=== PATIENT | female | born 1995 | race Caucasian/White ===

== ENCOUNTER 2021-07-14 09:44 | Inpatient (IN) | payer OTHER ==
[2021-07-14 10:27] LABS: BASO % 0.5 % (0-2.0); EOS % 1.5 % (0-4.5); HEMATOCRIT 34.9 % (32.4-45.2); HEMOGLOBIN 11.9 GM/dL (10.7-15.3); LYMPH % 17.5 % (8-40); MCH 28.5 pg (25.7-33.7); MCHC 34.1 g/dl (32.0-36.0); MEAN CELL VOLUME 83.8 fl (80-96); MEAN PLT VOLUME 9.9 fl (7.5-11.1); MONO % 5.8 % (3.8-10.2); NEUT % 74.7 % (42.8-82.8); PLATELET COUNT 170 10^3/uL (134-434); RBC 4.16 M/mm3 (3.60-5.2); RDW 13.9 % (11.6-15.6); WHITE BLOOD COUNT 9.5 K/mm3 (4.0-10.0)
[2021-07-14 10:33] LABS: INR 0.91 (0.83-1.09); PROTHROMBIN TIME (PATIENT) 11.2 SEC (9.7-13.0)
[2021-07-14] MEDS ORDERED: PROMETHAZINE HCL 25 MG/1 ML VIAL IVPB ONE (10:34)
[2021-07-14] MEDS ORDERED: BUTORPHANOL TARTRATE 2 MG/ML VIAL IVPB ONE (10:34)
[2021-07-14 10:35] LABS: ACTIVATED PTT 26.3 SECONDS (25.2-36.5)
[2021-07-14] MEDS ORDERED: DINOPROSTONE 10 MG VAGINAL SUPPOSITORY VG ONE (10:38)
[2021-07-14] MEDS ORDERED: DEXTROSE 5%-LACTATED RINGERS 1,000 ML IV SCH (10:45)
[2021-07-14 10:48] LABS: CALCIUM 8.3 mg/dL (8.5-10.1)
[2021-07-14 10:49] LABS: BLOOD UREA NITROGEN 5.6 mg/dL (7-18)
[2021-07-14 10:52] VITALS: BMI 36.7
[2021-07-14 10:53] LABS: CREATININE 0.4 mg/dL (0.55-1.3)
[2021-07-14 12:33] LABS: METHADONE, UR NEGATIVE (NEGATIVE); OPIATES, URI NEGATIVE (NEGATIVE); PHENCYCLIDINE,URINE NEGATIVE (NEGATIVE); URINE BARBITURATES NEGATIVE (NEGATIVE)
[2021-07-14 12:34] LABS: COCAINE, UR NEGATIVE (NEGATIVE)
[2021-07-14 12:37] LABS: URINE AMPHETAMINES NEGATIVE (NEGATIVE); URINE BENZODIAZEPINES NEGATIVE (NEGATIVE)
[2021-07-14] MEDS ORDERED: AMPICILLIN SODIUM 2 GM VIAL ONE (14:14)
[2021-07-14] MEDS ORDERED: AMPICILLIN - 2 GM in SODIUM CHLORIDE 100 ML IVPB ONE ×2 (14:28→14:56)
[2021-07-14] MEDS ORDERED: AMPICILLIN SODIUM 1 GM VIAL ONE (17:53)
[2021-07-14] MEDS ORDERED: AMPICILLIN - 1 GM in SODIUM CHLORIDE 100 ML IVPB SCH (18:30)
[2021-07-14] MEDS ORDERED: BUTORPHANOL TARTRATE 2 MG/ML VIAL ONE (18:42)
[2021-07-14] MEDS ORDERED: PROMETHAZINE HCL 25 MG/1 ML VIAL ONE (18:42)
[2021-07-14] MEDS ORDERED: OXYTOCIN 30 UNITS in 0.9% NS 30 UNIT/500 ML INFUS.BAG IVPB SCH (19:30)
[2021-07-14] MEDS ORDERED: OXYTOCIN 30 UNITS in 0.9% NS 30 UNIT/500 ML INFUS.BAG IVPB ONE (19:32)
[2021-07-14] MEDS ORDERED: OXYTOCIN 20 UNITS in 0.9% NS 20 UNIT/1,000 ML INFUS.BAG IV ONE (20:44)
[2021-07-14] MEDS: OXYTOCIN 20 UNITS in 0.9% NS 20 UNIT/1,000 ML INFUS.BAG IV SCH (20:57)
[2021-07-14] MEDS ORDERED: WITCH HAZEL 50% (TUCKS) 40 PAD/JAR PAD TP PRN (21:24)
[2021-07-14] MEDS ORDERED: BENZOCAINE 20% 57 GM BOTTLE TP PRN (21:24)
[2021-07-14] MEDS ORDERED: METHYLERGONOVINE MALEATE 0.2 MG/1 ML AMP IM PRN (21:24)
[2021-07-14] MEDS ORDERED: BISACODYL 10 MG SUPP.RECT RC PRN (21:24)
[2021-07-14] MEDS ORDERED: BENZOCAINE 28 GM HEMORRHOIDAL OINTMENT TP PRN (21:24)
[2021-07-14] MEDS ORDERED: IBUPROFEN 600 MG TABLET (FP) PO PRN (21:24)
[2021-07-14] MEDS ORDERED: ACETAMINOPHEN 325 MG TABLET (FP) PO PRN (21:24)
[2021-07-14 22:14] LABS: CORD BASE EXCESS -2.3 mmol/L (0-2); CORD HCO3 22.7 mmHg (20-29); CORD PCO2 40.1 mmHg (30-78); CORD pH 7.371 (7.14-7.44)
[2021-07-14 22:17] LABS: CORD BASE EXCESS -3.1 mmol/L (0-2); CORD HCO3 21.5 mmHg (20-29); CORD PCO2 37.5 mmHg (30-78); CORD pH 7.377 (7.14-7.44)
[2021-07-14] MEDS ORDERED: SODIUM PHOSPHATE/NA BIPHOS 133 ML ENEMA RC ONE (22:30)
[2021-07-15] MEDS ORDERED: OXYTOCIN 20 UNITS in 0.9% NS 20 UNIT/1,000 ML INFUS.BAG IV ONE (04:20)
[2021-07-15] MEDS ORDERED: ACETAMINOPHEN 325 MG TABLET (FP) ONE (04:24)
[2021-07-15] MEDS ORDERED: IBUPROFEN 600 MG TABLET (FP) PO ONE (04:24)
[2021-07-15] MEDS: OXYTOCIN 20 UNITS in 0.9% NS 20 UNIT/1,000 ML INFUS.BAG IV SCH (04:30)
[2021-07-15] MEDS: FERROUS SO4 325 MG TABLET (FP) PO SCH ×2 (09:00→18:06)
[2021-07-15 10:12] LABS: BASO % 0.6 % (0-2.0); EOS % 0.4 % (0-4.5); HEMATOCRIT 34.7 % (32.4-45.2); HEMOGLOBIN 11.7 GM/dL (10.7-15.3); LYMPH % 14.1 % (8-40); MCH 28.9 pg (25.7-33.7); MCHC 33.8 g/dl (32.0-36.0); MEAN CELL VOLUME 85.6 fl (80-96); MEAN PLT VOLUME 10.7 fl (7.5-11.1); MONO % 4.4 % (3.8-10.2); NEUT % 80.5 % (42.8-82.8); PLATELET COUNT 180 10^3/uL (134-434); RBC 4.05 M/mm3 (3.60-5.2); WHITE BLOOD COUNT 12.8 K/mm3 (4.0-10.0)
[2021-07-15] MEDS ORDERED: FERROUS SO4 325 MG TABLET (FP) ONE (10:22)
[2021-07-15] MEDS ORDERED: PRENATAL VITAMINS W/ FOLIC ACID TABLET (FP) PO ONE (10:22)
[2021-07-15] MEDS: PRENATAL VITAMINS W/ FOLIC ACID TABLET (FP) PO SCH (10:25)
[2021-07-15] MEDS ORDERED: SENNOSIDES/DOCUSATE COMBO (SENNA PLUS) TABLET (UD) PO PRN (22:00)
[2021-07-15 22:28] VITALS: BP 111/73; PULSE 77; TEMP 97.9
[2021-07-16] MEDS: PRENATAL VITAMINS W/ FOLIC ACID TABLET (FP) PO SCH (10:33)
[2021-07-16] MEDS: FERROUS SO4 325 MG TABLET (FP) PO SCH (10:33)
== END 2021-07-16 12:50 | disposition home or self-care (01) | DRG 560 ==
LOC: JLDR 09:44 → J3W 07-15 10:40
PROVIDERS: ADMIT Obstetrics & Gynecology; ATTEND Obstetrics & Gynecology
PROC: 3E0P7VZ Introduction of Hormone into Female Reproductive, Via Natural or Artificial Opening (ICD-10-PCS; principal; 2021-07-14)
PROC: 10E0XZZ Delivery of Products of Conception, External Approach (ICD-10-PCS; 2021-07-14)
DX: O48.0 Post-term pregnancy (principal); O99.334 Smoking (tobacco) complicating childbirth; F17.210 Nicotine dependence, cigarettes, uncomplicated; Z22.330 Carrier of Group B streptococcus; Z3A.40 40 weeks gestation of pregnancy; Z37.0 Single live birth
CPT/HCPCS: 36415; 36600; 59409; 80048; 80307; 82803; 85025; 85610; 85730; 86780; 86850; 86900; 86901